=== PATIENT | male | born 1950 | race African-American/Black ===

== ENCOUNTER 2021-09-07 04:50 | Emergency (ER) | payer MEDICARE, MEDICAID ==
[~2021-09-07] VITALS: Ht 172.7 cm; Wt 84.0 kg
[2021-09-07 04:58] VITALS: BP 154/93
[2021-09-07] MEDS ORDERED: ARIP10TA56 PO (23:48)
[2021-09-07] MEDS ORDERED: DIPH50CA38 PO (23:48)
[2021-09-07] MEDS ORDERED: MIRT-89 PO (23:48)
[2021-09-07] MEDS ORDERED: SERT-112 PO (23:48)
[2021-09-07] MEDS ORDERED: HYDR-4009 PO (23:48)
[2021-09-09] MEDS ORDERED: CEPH500T MT (12:24)
== END 2021-09-07 06:31 | disposition home or self-care (01) ==
LOC: ER 05:20
DX: T40.691A Poisoning by other narcotics, accidental (unintentional), initial encounter (principal); R53.1 Weakness; R42 Dizziness and giddiness; F10.20 Alcohol dependence, uncomplicated; Y90.9 Presence of alcohol in blood, level not specified; I10 Essential (primary) hypertension; Y92.89 Other specified places as the place of occurrence of the external cause
CPT/HCPCS: 99283

== ENCOUNTER 2022-11-05 02:33 | Emergency (ER) | payer MEDICARE, MEDICAID ==
[~2022-11-05] VITALS: Ht 180.3 cm; Wt 82.0 kg
[~2022-11-05 02:33] MED LIST: ARIP10TA56 PO; CEPH500T MT; DIPH50CA38 PO; HYDR-4009 PO; MIRT-89 PO; SERT-112 PO
[2022-11-05 03:24] LABS: BASOPHILS % 1.5 % (0.0-2.0); EOSINOPHILS % 3.7 % (0.0-5.0); HEMATOCRIT. 41.5 % (42.0-52.0); HEMOGLOBIN. 14.1 g/dL (14.0-18.0); LYMPHOCYTES % 32.8 % (20.0-50.0); MEAN CORPUSCULAR HEMOGLOBIN 32.7 pg (28.0-32.0); MEAN CORPUSCULAR VOLUME 96.4 fL (80.0-94.0); MEAN PLATELET VOLUME 10.4 fl (7.4-10.4); MONOCYTES % 6.3 % (2.0-8.0); NEUTROPHILS % 55.7 % (40.0-76.0); PLATELET 202 x1000/uL (130-400); RED BLOOD CELL COUNT 4.31 mill/uL (4.7-6.1); RED CELL DISTRIBUTION WIDTH 12.9 % (11.6-14.6)
[2022-11-05 03:24] LABS: CLARITY URINE CLEAR (CLEAR); COLOR URINE YELLOW (YELLOW); KETONES URINE NEGATIVE (NEGATIVE); LEUKOCYTE ESTERASE URINE NEGATIVE (NEGATIVE); NITRITE URINE NEGATIVE (NEGATIVE); OCCULT BLOOD URINE 1+ (NEGATIVE); PROTEIN URINE NEGATIVE (NEGATIVE); SPECIFIC GRAVITY URINE 1.013 (1.005-1.030)
[2022-11-05 03:31] LABS: CHLORIDE 112 mEq/L (98-107)
[2022-11-05 04:54] LABS: BG BASE EXCESS -4.3 mmol/L (-2.0-2.0); BG CARBOXYHEMOGLOBIN 4.2 % (0.5-1.5); BG DEOXYHEMOGLOBIN 3.5 % (0.0-5.0); BG FRACTION INSPIRED OXYGEN 21; BG HCO3 ACT 19.9 mmol/L (22.0-26.0); BG METHEMOGLOBIN 0.1 % (0.0-1.5); BG OXYGEN SATURATION 96.3 % (92.0-98.5); BG OXYHEMOGLOBIN 92.2 % (94.0-97.0); BG PCO2 34.3 mmHg (35.0-45.0); BG PH 7.382 (7.350-7.450); BG PO2 77.7 mmHg (75.0-100.0); BG SAMPLE SITE RIGHT RADIAL; BG TOTAL HEMOGLOBIN 14.3 g/dL (12.0-18.0); BG VENT MODE ROOM AIR
[2022-11-05] MEDS ORDERED: HYDR12.54 MT (05:53)
[2022-11-05] MEDS ORDERED: TOPUD MT (05:53)
[2022-11-05] MEDS ORDERED: AMLO10TA80 MT (05:53)
[2022-11-05 06:20] VITALS: BP 169/99
== END 2022-11-05 06:23 | disposition home or self-care (01) ==
LOC: ER 02:33
DX: R06.02 Shortness of breath (principal); R42 Dizziness and giddiness; I10 Essential (primary) hypertension; F14.10 Cocaine abuse, uncomplicated
CPT/HCPCS: 36415; 36600; 71045; 80053; 81003; 82375; 82805; 83880; 84484; 85025; 93005; 99285

== ENCOUNTER 2023-06-25 08:57 | Emergency (ER) | payer MEDICARE, MEDICAID ==
[~2023-06-25] VITALS: Ht 175.3 cm; Wt 91.0 kg
[~2023-06-25 08:57] MED LIST changes: +AMLO10TA80 MT; +HYDR12.54 MT; +TOPUD MT
[2023-06-25 09:13] VITALS: O2SAT 96
[2023-06-25 11:19] LABS: BASOPHILS % 1.3 % (0.0-2.0); EOSINOPHILS % 1.7 % (0.0-5.0); HEMATOCRIT. 32.3 % (42.0-52.0); HEMOGLOBIN. 10.9 g/dL (14.0-18.0); LYMPHOCYTES % 26.6 % (20.0-50.0); MEAN CORPUSCULAR HGB CONC 33.8 g/dL (31.0-37.0); MEAN CORPUSCULAR VOLUME 97.7 fL (80.0-94.0); MEAN PLATELET VOLUME 9.9 fl (7.4-10.4); MONOCYTES % 4.6 % (2.0-8.0); NEUTROPHILS % 65.8 % (40.0-76.0); PLATELET 241 x1000/uL (130-400); RED BLOOD CELL COUNT 3.31 mill/uL (4.7-6.1); RED CELL DISTRIBUTION WIDTH 13.4 % (11.6-14.6); WHITE BLOOD COUNT 10.7 x1000/uL (4.5-11.0)
[2023-06-25 12:21] LABS: CLARITY URINE TURBID (CLEAR); COLOR URINE RED (YELLOW); GLUCOSE URINE NEGATIVE (NEGATIVE); KETONES URINE NEGATIVE (NEGATIVE); LEUKOCYTE ESTERASE URINE 3+ (NEGATIVE); NITRITE URINE POSITIVE (NEGATIVE); OCCULT BLOOD URINE TRACE (NEGATIVE); PROTEIN URINE 1+ (NEGATIVE); SPECIFIC GRAVITY URINE 1.028 (1.005-1.030); UROBILINOGEN URINE 0.2 E.U./dL (0.2-1.0)
[2023-06-25 12:49] LABS: CARBON DIOXIDE 30 mEq/L (21-32); CHLORIDE 108 mEq/L (98-107); CREATININE 0.9 mg/dL (0.6-1.3); GLUCOSE 99 mg/dL (70-105); POTASSIUM 4.2 mEq/L (3.5-5.1); SODIUM 142 mEq/L (136-145); UREA NITROGEN BLOOD 12 mg/dL (9-23)
[2023-06-25 14:41] LABS: RBC URINE TNTC /hpf (0-2); WBC URINE 50-100 /hpf (0-2)
[2023-06-25 14:42] LABS: BACTERIA URINE 4+; SQUAMOUS EPITHELIAL CELL URINE FEW /lpf (RARE/1+); YEAST URINE NONE SEEN
[2023-06-25] MEDS ORDERED: NITR-87 MT (15:27)
[2023-06-25 17:26] VITALS: BP 132/72; PULSE 89; RESP 17; TEMP 98.1
== END 2023-06-25 17:29 | disposition home or self-care (01) ==
LOC: ER 08:57
DX: R10.30 Lower abdominal pain, unspecified (principal); F10.20 Alcohol dependence, uncomplicated; I10 Essential (primary) hypertension; F14.10 Cocaine abuse, uncomplicated; Z79.899 Other long term (current) drug therapy
CPT/HCPCS: 36415; 74176; 80048; 81003; 85025; 99284

== ENCOUNTER 2024-08-12 12:12 | Emergency (ER) | payer MEDICARE, MEDICAID ==
[~2024-08-12 12:12] MED LIST changes: -ARIP10TA56 PO; +ARIP10TA86 PO; -CEPH500T MT; +FINA-37 MT; +TAMS-11 MT
[2024-08-12] MEDS: KETOROLAC 30MG/ML VIAL IM ONE (14:47)
[2024-08-12] MEDS ORDERED: IBUP-2029 MT (14:55)
[2024-08-12 15:19] VITALS: BP 140/66; PULSE 67; RESP 18; TEMP 36.9; O2SAT 100
== END 2024-08-12 15:22 | disposition home or self-care (01) ==
LOC: ER 12:12
DX: M54.50 Low back pain, unspecified (principal); F14.10 Cocaine abuse, uncomplicated; I10 Essential (primary) hypertension; Z79.899 Other long term (current) drug therapy
CPT/HCPCS: 99283; 72100; 96372; J1885